=== PATIENT | male | born 1965 | race Caucasian/White ===

== ENCOUNTER 2023-03-08 10:31 | Inpatient (IN) | payer BC ==
[2023-03-08] MEDS ORDERED: Polyethylene Glycol 3350 Powder 17 GM Packet PO PRN (14:53)
[2023-03-08] MEDS: Acetaminophen 325 MG Tab PO PRN (20:10)
[2023-03-09] MEDS ORDERED: Polyethylene Glycol 3350 Powder 17 GM Packet PO SCH (09:00)
[2023-03-09] MEDS: Acetaminophen 325 MG Tab PO PRN ×3 (09:34→20:47)
[2023-03-09] MEDS: Enoxaparin 40 MG/0.4 ML Syringe SUBCUT SCH (09:35)
[2023-03-09] MEDS: Rosuvastatin 20 MG Tab PO SCH (20:43)
[2023-03-10] MEDS: Acetaminophen 325 MG Tab PO PRN (01:13)
[2023-03-10] MEDS: diphenhydrAMINE 25 MG Cap PO PRN ×2 (01:39→21:57)
[2023-03-10] MEDS ORDERED: Acetaminophen/HYDROcodone 325-5 MG Tab PO PRN (08:47)
[2023-03-10] MEDS: Enoxaparin 40 MG/0.4 ML Syringe SUBCUT SCH (09:12)
[2023-03-10] MEDS: Acetaminophen 325 MG Tab PO SCH ×3 (10:00→20:13)
[2023-03-10] MEDS: Rosuvastatin 20 MG Tab PO SCH (20:14)
[2023-03-11] MEDS: Enoxaparin 40 MG/0.4 ML Syringe SUBCUT SCH (08:03)
[2023-03-11] MEDS: Acetaminophen 325 MG Tab PO SCH ×3 (08:03→21:14)
[2023-03-11] MEDS: Ibuprofen 200 MG Tab PO SCH ×2 (14:16→21:13)
[2023-03-11] MEDS: Rosuvastatin 20 MG Tab PO SCH (21:12)
[2023-03-11] MEDS: diphenhydrAMINE 25 MG Cap PO PRN (23:04)
[2023-03-12] MEDS: Ibuprofen 200 MG Tab PO SCH ×3 (08:13→20:32)
[2023-03-12] MEDS: Acetaminophen 325 MG Tab PO SCH ×2 (08:14→14:00)
[2023-03-12] MEDS: Enoxaparin 40 MG/0.4 ML Syringe SUBCUT SCH (08:15)
[2023-03-12] MEDS ORDERED: Sennosides/Docusate Sodium 50-8.6 MG Tab PO SCH (10:00)
[2023-03-12] MEDS: Polyethylene Glycol 3350 Powder 17 GM Packet PO PRN (10:01)
[2023-03-12] MEDS: Magnesium Oxide 400 MG Tab PO SCH (20:32)
[2023-03-12] MEDS: Rosuvastatin 20 MG Tab PO SCH (20:32)
[2023-03-13] MEDS: Sennosides/Docusate Sodium 50-8.6 MG Tab PO PRN (06:39)
[2023-03-13] MEDS: Acetaminophen 325 MG Tab PO PRN ×2 (06:41→22:04)
[2023-03-13] MEDS: Polyethylene Glycol 3350 Powder 17 GM Packet PO PRN (06:43)
[2023-03-13] MEDS: Ibuprofen 200 MG Tab PO SCH ×4 (09:07→21:00)
[2023-03-13] MEDS: Enoxaparin 40 MG/0.4 ML Syringe SUBCUT SCH (09:08)
[2023-03-13] MEDS: Magnesium Oxide 400 MG Tab PO SCH (20:59)
[2023-03-13] MEDS: Rosuvastatin 20 MG Tab PO SCH (20:59)
[2023-03-13] MEDS: diphenhydrAMINE 25 MG Cap PO PRN (22:04)
[2023-03-14] MEDS: Enoxaparin 40 MG/0.4 ML Syringe SUBCUT SCH (09:08)
[2023-03-14] MEDS: Sennosides/Docusate Sodium 50-8.6 MG Tab PO PRN (09:09)
[2023-03-14] MEDS: Acetaminophen 325 MG Tab PO PRN (15:08)
[2023-03-14] MEDS: Magnesium Oxide 400 MG Tab PO SCH (20:47)
[2023-03-14] MEDS: Rosuvastatin 20 MG Tab PO SCH (20:47)
[2023-03-15] MEDS: diphenhydrAMINE 25 MG Cap PO PRN ×2 (00:50→21:18)
[2023-03-15] MEDS: Acetaminophen 325 MG Tab PO PRN ×2 (00:51→21:16)
[2023-03-15] MEDS: Enoxaparin 40 MG/0.4 ML Syringe SUBCUT SCH (08:29)
[2023-03-15] MEDS: Ibuprofen 200 MG Tab PO PRN (12:09)
[2023-03-15] MEDS: Sennosides/Docusate Sodium 50-8.6 MG Tab PO PRN (18:16)
[2023-03-15] MEDS: Magnesium Oxide 400 MG Tab PO SCH (21:18)
[2023-03-15] MEDS: Rosuvastatin 20 MG Tab PO SCH (21:18)
[2023-03-16] MEDS: Enoxaparin 40 MG/0.4 ML Syringe SUBCUT SCH (09:18)
[2023-03-16] MEDS: Ibuprofen 200 MG Tab PO PRN (10:41)
[2023-03-16] MEDS: Sennosides/Docusate Sodium 50-8.6 MG Tab PO PRN (20:26)
[2023-03-16] MEDS: Magnesium Oxide 400 MG Tab PO SCH (20:26)
[2023-03-16] MEDS: Acetaminophen 325 MG Tab PO PRN (20:26)
[2023-03-16] MEDS: Rosuvastatin 20 MG Tab PO SCH (20:26)
[2023-03-16] MEDS: diphenhydrAMINE 25 MG Cap PO PRN (20:27)
[2023-03-17] MEDS: Enoxaparin 40 MG/0.4 ML Syringe SUBCUT SCH (08:06)
[2023-03-17] MEDS: Acetaminophen 325 MG Tab PO PRN ×2 (09:35→21:20)
[2023-03-17] MEDS: Magnesium Oxide 400 MG Tab PO SCH (21:20)
[2023-03-17] MEDS: Sennosides/Docusate Sodium 50-8.6 MG Tab PO PRN (21:20)
[2023-03-17] MEDS: diphenhydrAMINE 25 MG Cap PO PRN (21:20)
[2023-03-17] MEDS: Rosuvastatin 20 MG Tab PO SCH (21:20)
[2023-03-18] MEDS: Enoxaparin 40 MG/0.4 ML Syringe SUBCUT SCH (08:00)
[2023-03-18] MEDS: Acetaminophen 325 MG Tab PO PRN ×2 (10:24→20:53)
[2023-03-18] MEDS: Magnesium Oxide 400 MG Tab PO SCH (20:53)
[2023-03-18] MEDS: diphenhydrAMINE 25 MG Cap PO PRN (20:53)
[2023-03-18] MEDS: Rosuvastatin 20 MG Tab PO SCH (20:53)
[2023-03-19] MEDS: Enoxaparin 40 MG/0.4 ML Syringe SUBCUT SCH (08:15)
== END 2023-03-19 13:00 | disposition home health service (06) | DRG 862 ==
LOC: FB.MS 13:17
PROVIDERS: ADMIT Family Medicine; ATTEND Family Medicine
DX: S82.201D Unspecified fracture of shaft of right tibia, subsequent encounter for closed fracture with routine healing (principal); S82.841D Displaced bimalleolar fracture of right lower leg, subsequent encounter for closed fracture with routine healing; S82.401D Unspecified fracture of shaft of right fibula, subsequent encounter for closed fracture with routine healing; W10.8XXA Fall (on) (from) other stairs and steps, initial encounter; E78.2 Mixed hyperlipidemia; Z98.890 Other specified postprocedural states; Z86.73 Personal history of transient ischemic attack (TIA), and cerebral infarction without residual deficits
CPT/HCPCS: 97110-GO; 97110-GP; 97161-GP; 97165-GO; 97530-GO; 97530-GP; 97535-GO; 97542-GO; 99304; 99308; 99315; A9270-GY; J1650